=== PATIENT | male | born 1980 | race Two or more races ===

== ENCOUNTER 2020-01-28 21:54 | Emergency (ER) | payer OTHER ==
[~2020-01-28] VITALS: Ht 170.2 cm; Wt 98.0 kg
[2020-01-28 22:00] VITALS: BP 169/80
== END 2020-01-28 23:40 | disposition left against medical advice (07) ==
LOC: ER 21:54
DX: E11.621 Type 2 diabetes mellitus with foot ulcer (principal); E11.65 Type 2 diabetes mellitus with hyperglycemia; I10 Essential (primary) hypertension
CPT/HCPCS: 82962; 99282; 99283

== ENCOUNTER 2020-02-11 21:57 | Emergency (ER) | payer OTHER ==
[~2020-02-11] VITALS: Ht 193 cm; Wt 105.0 kg
[2020-02-11] MEDS ORDERED: BACITRACIN ZINC OINT UDPKT TOP ONE (23:00)
[2020-02-11 23:19] VITALS: BP 126/75
== END 2020-02-11 23:25 | disposition home or self-care (01) ==
LOC: ER 22:07
DX: E11.621 Type 2 diabetes mellitus with foot ulcer (principal); L97.429 Non-pressure chronic ulcer of left heel and midfoot with unspecified severity; L97.419 Non-pressure chronic ulcer of right heel and midfoot with unspecified severity
CPT/HCPCS: 99282; 99283

== ENCOUNTER 2020-02-26 00:07 | Emergency (ER) | payer OTHER ==
[~2020-02-26] VITALS: Ht 172.7 cm; Wt 108.4 kg
[2020-02-26] MEDS ORDERED: IBUPROFEN 600MG TABLET PO STA (01:45)
[2020-02-26 02:25] VITALS: BP 135/87
== END 2020-02-26 02:26 | disposition home or self-care (01) ==
LOC: ER 00:07
DX: M25.561 Pain in right knee (principal); M25.562 Pain in left knee; Z91.81 History of falling
CPT/HCPCS: 99283

== ENCOUNTER 2020-03-21 19:52 | Emergency (ER) | payer MEDICAID, OTHER ==
[~2020-03-21] VITALS: Ht 180.3 cm; Wt 118.0 kg
[2020-03-21 20:01] VITALS: BP 148/88
== END 2020-03-21 20:51 | disposition home or self-care (01) ==
LOC: ER 19:52
DX: M25.562 Pain in left knee (principal); M25.561 Pain in right knee; E11.9 Type 2 diabetes mellitus without complications
CPT/HCPCS: 99282

== ENCOUNTER 2022-02-08 12:55 | Emergency (ER) | payer MEDICAID ==
[~2022-02-08] VITALS: Ht 167.6 cm; Wt 109.0 kg
[2022-02-08] MEDS ORDERED: INSULIN REGULAR (HUMULIN R) 300UNITS/3ML VIAL IV ONE ×2 (15:30→18:00)
[2022-02-08] MEDS ORDERED: SODIUM CHLORIDE 0.9% 1,000 ML IV ONE ×2 (15:30→18:00)
[2022-02-08] MEDS ORDERED: CEFTRIAXONE 1 G PREMIX 50 ML IV ONE (15:30)
[2022-02-08 16:01] LABS: BASOPHILS % 0.5 % (0.0-2.0); EOSINOPHILS % 3.8 % (0.0-5.0); HEMATOCRIT. 35.6 % (42.0-52.0); LYMPHOCYTES % 11.8 % (20.0-50.0); MEAN CORPUSCULAR VOLUME 86.2 fL (80.0-94.0); MEAN PLATELET VOLUME 10.1 fl (7.4-10.4); NEUTROPHILS % 76.9 % (40.0-76.0); PLATELET 268 x1000/uL (130-400); RED BLOOD CELL COUNT 4.13 mill/uL (4.7-6.1); RED CELL DISTRIBUTION WIDTH 15.2 % (11.6-14.6)
[2022-02-08 16:15] LABS: CHLORIDE 99 mEq/L (98-107)
[2022-02-08 16:36] LABS: BETA HYDROXYBUTYRATE 0.1 mMol/L (0.0-0.3)
[2022-02-08 20:00] VITALS: BP 130/80
[2022-02-08] MEDS ORDERED: CEPH500C2 MT (20:00)
== END 2022-02-08 20:51 | disposition home or self-care (01) ==
LOC: ER 13:33
DX: E11.621 Type 2 diabetes mellitus with foot ulcer (principal); L97.528 Non-pressure chronic ulcer of other part of left foot with other specified severity; L97.518 Non-pressure chronic ulcer of other part of right foot with other specified severity; E11.65 Type 2 diabetes mellitus with hyperglycemia; N28.9 Disorder of kidney and ureter, unspecified; Z89.422 Acquired absence of other left toe(s); Z79.4 Long term (current) use of insulin
CPT/HCPCS: 36415; 73630; 80053; 82010; 82962; 85025; 96361; 96365; 96375; 96376; 99284; J0696; J1815; J7030

== ENCOUNTER 2022-11-15 19:31 | Inpatient (IN) | payer MEDICAID ==
[~2022-11-15] VITALS: Ht 167.6 cm; Wt 117.8 kg
[~2022-11-15 19:31] MED LIST: CEPH500C2 MT
[2022-11-15 20:34] LABS: BASOPHILS % 0.3 % (0.0-2.0); EOSINOPHILS % 4.4 % (0.0-5.0); HEMATOCRIT. 32.2 % (42.0-52.0); HEMOGLOBIN. 11.1 g/dL (14.0-18.0); LYMPHOCYTES % 22.3 % (20.0-50.0); MEAN CORPUSCULAR HEMOGLOBIN 29.9 pg (28.0-32.0); MEAN PLATELET VOLUME 8.5 fl (7.4-10.4); MONOCYTES % 11.3 % (2.0-8.0); NEUTROPHILS % 61.7 % (40.0-76.0); PLATELET 335 x1000/uL (130-400); RED CELL DISTRIBUTION WIDTH 13.2 % (11.6-14.6)
[2022-11-15 20:39] LABS: CHLORIDE 97 mEq/L (98-107)
[2022-11-15] MEDS ORDERED: VANCOMYCIN 1G PREMIX 200 ML IV ONE (23:30)
[2022-11-15] MEDS ORDERED: PIPERACILLIN/TAZ 3.375G PREMIX 50 ML IV ONE (23:30)
[2022-11-15] MEDS ORDERED: SODIUM CHLORIDE 0.9% 1,000 ML IV ONE (23:30)
[2022-11-16 05:30] VITALS: BP 159/87
== END 2022-11-16 06:09 | disposition left against medical advice (07) | DRG 344 ==
LOC: ER 19:31 → MICUSO 11-16 01:23
PROVIDERS: ADMIT Internal Medicine; ATTEND Internal Medicine
DX: E11.69 Type 2 diabetes mellitus with other specified complication (principal); M86.9 Osteomyelitis, unspecified; Z53.29 Procedure and treatment not carried out because of patient's decision for other reasons; M19.90 Unspecified osteoarthritis, unspecified site
CPT/HCPCS: 36415; 73620; 73700; 80053; 83605; 85025; 85651; 86140; 99291; J2543; J3370; J7030

== ENCOUNTER 2023-11-11 10:52 | Emergency (ER) | payer MEDICAID ==
[~2023-11-11] VITALS: Ht 167.6 cm; Wt 81.0 kg
[~2023-11-11 10:52] MED LIST changes: +ACET-283 PO; +AMLO10TA80 PO; +ASPI-1406 PO; +ATOR-2 PO; +CEFT2FRO5 IV; +ERTU15TA PO; +FAMO20TA8 PO; +GABA-532 PO; +LANTUSUD SUBCUT; +LIDO700A30 TOP; +LISI10TA26 PO; +MULT-1318 PO; +metformin
[2023-11-11 11:24] VITALS: TEMP 98.4; O2SAT 97
[2023-11-11 12:25] LABS: BASOPHILS % 0.3 % (0.0-2.0); HEMATOCRIT. 33.3 % (42.0-52.0); HEMOGLOBIN. 11.4 g/dL (14.0-18.0); LYMPHOCYTES % 14.8 % (20.0-50.0); MEAN CORPUSCULAR HGB CONC 34.3 g/dL (31.0-37.0); MEAN CORPUSCULAR VOLUME 81.6 fL (80.0-94.0); MEAN PLATELET VOLUME 7.7 fl (7.4-10.4); MONOCYTES % 4.8 % (2.0-8.0); NEUTROPHILS % 78.1 % (40.0-76.0); PLATELET 423 x1000/uL (130-400); RED BLOOD CELL COUNT 4.07 mill/uL (4.7-6.1); RED CELL DISTRIBUTION WIDTH 16.2 % (11.6-14.6); WHITE BLOOD COUNT 10.7 x1000/uL (4.5-11.0)
[2023-11-11 12:30] LABS: POTASSIUM 5.2 mEq/L (3.5-5.1)
[2023-11-11 12:32] LABS: CALCIUM 9.7 mg/dL (8.7-10.4)
[2023-11-11 12:36] LABS: CREATININE 1.5 mg/dL (0.6-1.3)
[2023-11-11 15:10] VITALS: BP 120/80; PULSE 97; RESP 18
== END 2023-11-11 16:26 | disposition home or self-care (01) ==
LOC: ER 10:52
DX: T82.898A Other specified complication of vascular prosthetic devices, implants and grafts, initial encounter (principal); E11.9 Type 2 diabetes mellitus without complications; I10 Essential (primary) hypertension; Z98.890 Other specified postprocedural states; Y92.89 Other specified places as the place of occurrence of the external cause
CPT/HCPCS: 80048; 85025; 36415; 99283; Z7610

== ENCOUNTER 2023-11-15 05:34 | Emergency (ER) | payer MEDICAID ==
[~2023-11-15] VITALS: Ht 177.8 cm; Wt 109.0 kg
[2023-11-15 06:00] VITALS: O2SAT 99
[2023-11-15 10:45] VITALS: BP 11/67; PULSE 91; RESP 18; TEMP 97.8
== END 2023-11-15 11:33 | disposition home or self-care (01) ==
LOC: ER 05:34
DX: T82.898A Other specified complication of vascular prosthetic devices, implants and grafts, initial encounter (principal); E11.9 Type 2 diabetes mellitus without complications; I10 Essential (primary) hypertension; Z79.899 Other long term (current) drug therapy; Z79.82 Long term (current) use of aspirin
CPT/HCPCS: 99281; Z7610; C1893